=== PATIENT | male | born 2000 | race Two or more races ===

== ENCOUNTER 2019-03-22 22:11 | Emergency (ER) | payer MEDICAID ==
[~2019-03-22] VITALS: Ht 180.3 cm; Wt 111.6 kg
[2019-03-22 22:14] VITALS: Ht 180.3 cm; Wt 111.6 kg
[2019-03-23 01:50] VITALS: BP 106/64
== END 2019-03-23 01:51 | disposition home or self-care (01) ==
LOC: ED 22:11
DX: S39.012A Strain of muscle, fascia and tendon of lower back, initial encounter (principal); F17.210 Nicotine dependence, cigarettes, uncomplicated; X50.0XXA Overexertion from strenuous movement or load, initial encounter; Y93.89 Activity, other specified; Y92.89 Other specified places as the place of occurrence of the external cause; Y99.0 Civilian activity done for income or pay
CPT/HCPCS: J1885